=== PATIENT | female | born 1970 | race Two or more races ===

== ENCOUNTER → 2017-06-16 | Outpatient (CLI) | payer OTHER ==
--- NOTE | ~2017-06-16 | MY29 ---
[facility] A Service of [facility] & [facility] RADIOLOGY TEXT RESULTS PATIENT: HCEVY HURTADO LOCATION: [facility] : 74 UNIT #: [id number] AGE: [address]: TUSHAR DOUGHERTY APRN SEX: F ORDER DR: [id number] [facility] [address] [place], [place] [address] [id number] O MR#: [id number] Acc #: [id number] NAME: CHEVY HURTADO : 1970 SEX: F STUDY DATE/TIME: 06/16/2017 11:27 UNIT: [facility] ROOM: STUDY DESCRIPTION: MY [facility] SCREENING W/ CAD BILAT Attending Physician: Yaya Dougherty M.D. Referring Physician: Yaya Dougherty M.D. Ordering Physician: Yaya Dougherty M.D. Primary Care Physician: Sandeep Ferguson M.D. MEDICAL IMAGING REPORT This report is preliminary unless electronic signature is present EXAM Digital screening mammogram 06/16/2017 HISTORY 46-year-old woman positive family history, cousin age 40. Annual screen. COMPARISON 02/04/2013, 04/24/2014, 05/08/2015, 06/14/2016. FINDINGS Digital imaging of each breast was completed utilizing screening protocol. Review includes FDA-approved CAD device. Breast parenchyma remains extremely dense with combination fibroglandular parenchyma and generalized fibronodularity. I see no suspicious mass characteristics. There are no interval occurring microcalcifications and no suspicious architectural deformity. IMPRESSION Stable benign mammogram. Extremely dense breast parenchyma present. Annual screening recommended. Patients over the age of 40 are entered into a reminder system with target due date for the next mammogram. A result letter will also be sent to the patient. BIRADS: 2 Benign finding Dictated by... Timur Chavez M.D. THIS IS AN ELECTRONICALLY VERIFIED REPORT Timur Chavez M.D. at 06/16/2017 1:56 PM [facility] A Service of [facility] & [facility] RADIOLOGY TEXT RESULTS PATIENT: CHEVY HURTADO LOCATION: [facility] : 74 UNIT #: [id number] AGE: [address]: TUSHAR DOUGHERTY APRN SEX: F ORDER DR: Johny TD: 06/16/2017 13:26 JOB #: [id number] MEDICAL IMAGING REPORT Page 1 of 1 COPY
== END | disposition home or self-care (01) ==
LOC: CWCC 06-08 13:15
DX: Z12.31 Encounter for screening mammogram for malignant neoplasm of breast (principal); Z80.3 Family history of malignant neoplasm of breast
CPT/HCPCS: G0202